=== PATIENT | male | born 1975 | race Caucasian/White ===

== ENCOUNTER 2018-03-10 10:22 | Emergency (ER) | payer OTHER ==
--- NOTE | 2018-03-10 10:46 | ED ---
Back Pain - HPI Summary HPI Summary: Fell backwards about 4 feet two days ago and has had left pleuritic back pain since. It hurts to move or breathe. He is not SOB and has had no gross hematuria. - History of Current Complaint Chief Complaint: EDChestWallPain Stated Complaint: BACK PAIN, FALL LEFT RIB PAIN Time Seen by Provider: 03/10/18 10:32 Hx Obtained From: Patient Onset/Duration: Sudden Onset - Fell onto his back (about 4 feet) 2 days ago Onset/Duration: Started Days Ago Timing: Constant Back Pain Location: Is Discrete @ - left low back posterior axillary line Severity Initially: Mild Severity Currently: Moderate Pain Intensity: 7 Character: Sharp Aggravating Symptom(s): Movement, Bending, Cough, Other - breathing Associated Signs And Symptoms: Positive: Negative - Allergies/Home Medications Allergies/Adverse Reactions: Allergies Allergy/AdvReac Type Severity Reaction Status Date / Time No Known Allergies Allergy Verified 03/10/18 10:24 PMH/Surg Hx/FS Hx/Imm Hx Infectious Disease History: No Infectious Disease History: Denies: Traveled Outside the [place] in Last 30 Days Review of Systems All Other Systems Reviewed And Are Negative: Yes Physical Exam - Summary Physical Exam Summary: Tender left posterior chest Triage Information Reviewed: Yes Vital Signs On Initial Exam: Initial Vitals Temp Pulse Resp BP Pulse Ox 98.7 F 69 15 156/74 97 03/10/18 10:24 03/10/18 10:24 03/10/18 10:24 03/10/18 10:24 03/10/18 10:24 Vital Signs Reviewed: Yes Appearance: Positive: Well-Appearing, Pain Distress - with deep breath or movemnet Skin: Positive: Warm, Skin Color Reflects Adequate Perfusion, Dry Head/Face: Positive: Normal Head/Face Inspection Eyes: Positive: Normal ENT: Positive: Normal ENT inspection Neck: Positive: Supple Respiratory/Lung Sounds: Positive: Clear to Auscultation, Breath Sounds Present Cardiovascular: Positive: Normal Abdomen Description: Positive: Nontender Bowel Sounds: Positive: Present Musculoskeletal: Positive: Normal Neurological: Positive: Normal Diagnostics - Vital Signs Vital Signs Temp Pulse Resp BP Pulse Ox 03/10/18 10:24 98.7 F 69 15 156/74 97 - Laboratory Lab Statement: Any lab studies that have been ordered have been reviewed, and results considered in the medical decision making process. Back Pain Course/Dx - Course Course Of Treatment: Mr. Abreu remained stable in the ED with normal VSS. His CXR revealed no pathology. We discussed occult rib fracture versus contusion and I recommended he continue symptomatic treatment. - Diagnoses Provider Diagnoses: Contusion of rib on left side Discharge - Sign-Out/Discharge Documenting (check all that apply): Patient Departure - Discharge Plan Condition: Stable Disposition: HOME Patient Education Materials: Rib Contusion (ED) Referrals: No Primary Care Phys,NOPCP [Primary Care Provider] - - Billing Disposition and Condition Condition: STABLE Disposition: Home
--- NOTE | 2018-03-10 11:30 | RAD ---
INDICATION: Chest pain COMPARISON: None TECHNIQUE: PA and lateral views of the chest were obtained. FINDINGS: The heart and mediastinum are normal in size and contour. The lungs are grossly clear. There is no evidence of large pleural effusion. Visualized bones are normal for the patient's age. There is no radiographic evidence of free air beneath the diaphragm IMPRESSION: No radiographic evidence of acute cardiopulmonary disease.
[2018-03-10 12:07] VITALS: BP 122/77
== END 2018-03-10 12:06 | disposition home or self-care (01) ==
LOC: ED 10:22
DX: S20.212A Contusion of left front wall of thorax, initial encounter (principal); M54.9 Dorsalgia, unspecified; W17.89XA Other fall from one level to another, initial encounter; Y92.9 Unspecified place or not applicable
CPT/HCPCS: 71046; 99282